=== PATIENT | male | born 1960 | race Caucasian/White ===

== ENCOUNTER 2022-07-18 06:05 | Emergency (ER) | payer OTHER ==
[~2022-07-18 06:05] MED LIST: LEXAPRO5 MG; MOTRIN800 MG PO; PRILOSEC OTC20 MG PO; TAMIFLU75 MG PO; TESSALON PERLE200 MG PO; ZITHROMAX Z PA250 MG PO
== END 2022-07-18 07:28 | disposition home or self-care (01) ==
LOC: ED 06:05
DX: J10.1 Influenza due to other identified influenza virus with other respiratory manifestations (principal); Z88.1 Allergy status to other antibiotic agents; Z98.890 Other specified postprocedural states; Z20.822 Contact with and (suspected) exposure to COVID-19

== ENCOUNTER 2024-10-04 11:24 | Emergency (ER) | payer MEDICARE ==
[~2024-10-04] VITALS: Ht 175.2 cm; Wt 97.1 kg
[2024-10-04] MEDS ORDERED: SODIUM CHLORIDE 0.9% 1,000 ML IV ONE (11:40)
[2024-10-04] MEDS ORDERED: Ondansetron Hydrochloride 4 MG/2 ML VIAL IV ONE (11:40)
[2024-10-04] MEDS ORDERED: diazePAM 5 MG TAB PO ONE (11:40)
[2024-10-04] MEDS ORDERED: Meclizine Hydrochloride 25 MG TAB PO ONE (11:40)
[2024-10-04 11:53] LABS: BASO % 0.2 % (0.0-1.0); EOS % 0.5 % (1.0-4.0); HEMATOCRIT 39.9 % (42.0-52.0); MEAN CELL VOLUME 92.4 fl (80.0-94.0); MEAN CORPUSCULAR HGB 30.1 pg (27.0-31.0); MEAN CORPUSCULAR HGB CONC 32.6 g/dl (33.0-37.0); MEAN PLATELET VOLUME 8.2 fl (9.6-12.3); MONO # 0.5 10*3/uL (0.1-1.0); MONO % 5.7 % (3.0-9.0); NEUT # 5.5 10*3/uL (2.3-7.9); NEUT % 67.6 % (47.0-73.0); PLATELET COUNT AUTOMATED 231 10*3/uL (130-400); RED BLOOD COUNT 4.32 10*6/uL (4.50-5.90); RED CELL DISTRI WIDTH 13.2 % (0-14.5); WHITE BLOOD COUNT 8.2 10*3/uL (4.8-10.8)
[2024-10-04] MEDS ORDERED: CITALOPRAM20 MG PO (12:58)
[2024-10-04] MEDS ORDERED: MULTI-VITAMIN1 EACH PO (13:01)
[2024-10-04] MEDS ORDERED: VITAMIN C500 M6 PO (13:02)
[2024-10-04] MEDS ORDERED: VITAMIN D250 MC1 PO (13:03)
[2024-10-04] MEDS ORDERED: ASPIRIN ADULT L81 M2 PO (13:04)
[2024-10-04] MEDS ORDERED: FISH OIL 1,0001 EAC2 PO (13:07)
[2024-10-04] MEDS ORDERED: ATENOLOL25 MG PO (13:09)
[2024-10-04 13:17] LABS: BUN 18 mg/dl (9-23); CHLORIDE 107 mmol/L (98-107); POTASSIUM 4.5 mmol/L (3.4-5.1)
[2024-10-04] MEDS ORDERED: ANTIVERT25 M2 PO (13:29)
== END 2024-10-04 15:38 | disposition home or self-care (01) ==
LOC: ED 11:24
PROVIDERS: Emergency Medicine
DX: H81.10 Benign paroxysmal vertigo, unspecified ear (principal); R11.2 Nausea with vomiting, unspecified; I10 Essential (primary) hypertension; Z98.890 Other specified postprocedural states